=== PATIENT | male | born 1995 | race Caucasian/White ===

== ENCOUNTER 2021-11-11 19:07 | Inpatient (IN) | payer MEDICAID, OTHER ==
[~2021-11-11] VITALS: Ht 177.8 cm; Wt 91.6 kg
[2021-11-11] MEDS ORDERED: LORAZEPAM 2MG/ML CPJ IV ONE (19:45)
[2021-11-11] MEDS ORDERED: LEVETIRACETAM 1000MG PREMIX 100 ML IV ONE (19:45)
[2021-11-11 20:13] LABS: BASOPHILS % 0.4 % (0.0-2.0); EOSINOPHILS % 1.1 % (0.0-5.0); HEMATOCRIT. 47.8 % (42.0-52.0); HEMOGLOBIN. 16.5 g/dL (14.0-18.0); MEAN CORPUSCULAR HEMOGLOBIN 29.1 pg (28.0-32.0); MEAN CORPUSCULAR VOLUME 84.2 fL (80.0-94.0); MEAN PLATELET VOLUME 7.6 fl (7.4-10.4); MONOCYTES % 5.5 % (2.0-8.0); PLATELET 291 x1000/uL (130-400); RED BLOOD CELL COUNT 5.67 mill/uL (4.7-6.1); RED CELL DISTRIBUTION WIDTH 13.2 % (11.6-14.6)
[2021-11-11 20:19] LABS: CHLORIDE 104 mEq/L (98-107)
[2021-11-11 20:24] LABS: ETHANOL BLOOD < 10 mg/dL
[2021-11-11 20:29] LABS: CREATINE KINASE 332 IU/L (39-308)
[2021-11-11 21:22] LABS: CLARITY URINE CLEAR (CLEAR); COLOR URINE YELLOW (YELLOW); KETONES URINE NEGATIVE (NEGATIVE); LEUKOCYTE ESTERASE URINE NEGATIVE (NEGATIVE); NITRITE URINE NEGATIVE (NEGATIVE); OCCULT BLOOD URINE TRACE (NEGATIVE); PROTEIN URINE 1+ (NEGATIVE); SPECIFIC GRAVITY URINE 1.017 (1.005-1.030); UROBILINOGEN URINE 0.2 E.U./dL (0.2-1.0)
[2021-11-11 21:34] LABS: *AMPHETAMINES SCREEN URINE NEGATIVE (NEGATIVE); *BARBITURATES SCREEN URINE NEGATIVE (NEGATIVE); *BENZODIAZEPINES SCREEN URINE NEGATIVE (NEGATIVE); *COCAINE SCREEN URINE NEGATIVE (NEGATIVE)
[2021-11-11 21:35] LABS: CANNABINOID URINE SCREEN NEGATIVE (NEGATIVE); METHADONE URINE SCREEN NEGATIVE (NEGATIVE); OPIATES URINE SCREEN NEGATIVE (NEGATIVE); PHENCYCLIDINE URINE SCREEN NEGATIVE (NEGATIVE)
[2021-11-11] MEDS ORDERED: KETOROLAC 15MG/ML VIAL IV PRN (22:00)
[2021-11-11] MEDS ORDERED: MAGNESIUM/ALUMINUM HYDROXIDE/SIMETHICONE 30ML UDC PO PRN (22:00)
[2021-11-11] MEDS ORDERED: ACETAMINOPHEN 325MG TABLET PO PRN ×2 (22:00)
[2021-11-11] MEDS ORDERED: LORAZEPAM 2MG/ML CPJ IV PRN (22:00)
[2021-11-11] MEDS ORDERED: GUAIFENESIN 200MG/10ML SUGAR FREE UDC PO PRN (22:00)
[2021-11-11] MEDS ORDERED: ONDANSETRON HCL 4MG/2ML INJ IV PRN (22:00)
[2021-11-11] MEDS ORDERED: ZOLPIDEM TARTRATE 5MG TABLET PO PRN (22:00)
[2021-11-11] MEDS ORDERED: CLONIDINE 0.1MG TABLET PO PRN (22:00)
[2021-11-11] MEDS ORDERED: NITROGLYCERIN 0.4MG TABLET SL SL PRN (22:00)
[2021-11-11] MEDS ORDERED: DOCUSATE SODIUM 100MG CAPSULE PO PRN (22:00)
[2021-11-11] MEDS ORDERED: IPRATROPIUM/ALBUTEROL 0.5-3(2.5)MG/3ML NEB NEB PRN (22:00)
[2021-11-11] MEDS ORDERED: KETOROLAC 30MG/ML VIAL IV PRN (22:15)
[2021-11-11 22:22] LABS: TOTAL IRON BINDING CAPACITY 333 ug/dL (250-450)
[2021-11-11] MEDS: SODIUM CHLORIDE 0.9% 1,000 ML IV SCH (22:24)
[2021-11-11 22:38] LABS: FOLIC ACID (FOLATE) SERUM 14.2 ng/mL (>5.38)
[2021-11-11 23:30] VITALS: BP 111/52
[2021-11-12 01:21] LABS: CREATINE KINASE 887 IU/L (39-308)
[2021-11-12] MEDS ORDERED: ZONI100C45 PO (01:54)
[2021-11-12 04:00] VITALS: BP 106/64
[2021-11-12] MEDS ORDERED: INFLUENZA VACCINE 05/PF 0.5 ML SYRINGE IM ONE (04:45)
[2021-11-12 07:49] LABS: BASOPHILS % 0.6 % (0.0-2.0); EOSINOPHILS % 2.8 % (0.0-5.0); HEMATOCRIT. 44.2 % (42.0-52.0); HEMOGLOBIN. 15.5 g/dL (14.0-18.0); LYMPHOCYTES % 26.7 % (20.0-50.0); MEAN CORPUSCULAR HEMOGLOBIN 29.5 pg (28.0-32.0); MEAN CORPUSCULAR VOLUME 84.2 fL (80.0-94.0); MEAN PLATELET VOLUME 7.7 fl (7.4-10.4); NEUTROPHILS % 60.9 % (40.0-76.0); PLATELET 256 x1000/uL (130-400); RED BLOOD CELL COUNT 5.25 mill/uL (4.7-6.1); RED CELL DISTRIBUTION WIDTH 13.3 % (11.6-14.6)
[2021-11-12 08:00] VITALS: BP 112/61
[2021-11-12 08:00] LABS: CHLORIDE 108 mEq/L (98-107)
[2021-11-12 08:08] LABS: PHOSPHORUS 2.9 mg/dL (2.5-4.9)
[2021-11-12 08:22] LABS: CREATINE KINASE 1365 IU/L (39-308)
[2021-11-12] MEDS: LEVETIRACETAM 500MG TABLET PO SCH ×2 (09:19→20:28)
[2021-11-12] MEDS: FAMOTIDINE 20MG TABLET PO SCH ×2 (09:19→21:53)
[2021-11-12] MEDS: SODIUM CHLORIDE 0.9% 1,000 ML IV SCH (09:21)
[2021-11-12 12:00] VITALS: BP 116/63
[2021-11-12 16:00] VITALS: BP 112/57
[2021-11-12 20:00] VITALS: BP 125/68
[2021-11-12] MEDS ORDERED: ZONISAMIDE 100MG CAPSULE PO SCH (21:00)
[2021-11-13] VITALS: BP 101/60
[2021-11-13 04:00] VITALS: BP 101/58
[2021-11-13 07:54] LABS: CREATINE KINASE 1185 IU/L (39-308)
[2021-11-13 08:00] VITALS: BP 113/66
[2021-11-13] MEDS: LEVETIRACETAM 500MG TABLET PO SCH (08:52)
[2021-11-13] MEDS: FAMOTIDINE 20MG TABLET PO SCH (08:53)
[2021-11-13 10:43] VITALS: BP 94/50
[2021-11-13 12:00] VITALS: BP 94/50
[2021-11-13] MEDS ORDERED: LEVETIRACETAM 500MG TABLET PO SCH (15:00)
== END 2021-11-13 15:00 | disposition home or self-care (01) | DRG 52 ==
LOC: ER 19:07 → EDBEDREQ 21:10 → EDBEDREQTM 21:10 → ENRESERV 21:52 → 7EST 11-12 01:05
PROVIDERS: ADMIT Internal Medicine; ATTEND Internal Medicine
DX: G92.8 Other toxic encephalopathy (principal); M62.82 Rhabdomyolysis; G40.909 Epilepsy, unspecified, not intractable, without status epilepticus; E87.6 Hypokalemia; F41.9 Anxiety disorder, unspecified; R74.01 Elevation of levels of liver transaminase levels; Z23 Encounter for immunization
CPT/HCPCS: 36415; 71045; 80053; 80305; 80320; 81003; 82550; 82607; 82746; 83540; 83550; 83735; 84100; 85025; 90686; 93005; 99285; J1953; J2060; G0480